=== PATIENT | female | born 1975 | race Caucasian/White ===

== ENCOUNTER 2023-08-07 09:27 | Day surgery (SDC) | payer BC, OTHER ==
[~2023-08-07 09:27] MED LIST: Lactated Ringers 1,000 ML IV SCH
[2023-08-07] MEDS ORDERED: fentaNYL 100 MCG/2 ML SDV ONE (11:07)
[2023-08-07] MEDS ORDERED: Propofol 200 MG/20 ML SDV ONE (11:07)
== END 2023-08-07 13:01 | disposition home or self-care (01) ==
LOC: VM.SDS 09:27
PROVIDERS: ATTEND Family Medicine
DX: Z12.11 Encounter for screening for malignant neoplasm of colon (principal); D12.2 Benign neoplasm of ascending colon; D12.3 Benign neoplasm of transverse colon; D12.5 Benign neoplasm of sigmoid colon; K63.5 Polyp of colon; K62.1 Rectal polyp; K63.89 Other specified diseases of intestine; Z83.71 Family history of colonic polyps
CPT/HCPCS: 00812; J2704; J3010; J7120